=== PATIENT | female | born 1975 | race Caucasian/White ===

== ENCOUNTER → 2016-09-27 | Outpatient (CLI) | payer OTHER ==
[~2016-09-27] MED LIST: IBUP-1222 PO; MEDR5TAB2 PO
== END | disposition home or self-care (01) ==
LOC: CFH 14:04
PROVIDERS: ATTEND Family Medicine
DX: N83.292 Other ovarian cyst, left side (principal); N85.8 Other specified noninflammatory disorders of uterus; N85.4 Malposition of uterus; Z90.721 Acquired absence of ovaries, unilateral
CPT/HCPCS: 76830

== ENCOUNTER 2017-02-09 10:03 | Day surgery (SDC) | payer OTHER ==
[2017-02-07 09:17] LABS: HEMOGLOBIN 11.6 g/dL (11.7-16.4); WHITE BLOOD COUNT 6.5 x10^3/uL (3.4-10)
[~2017-02-09] VITALS: Ht 170.2 cm; Wt 93.0 kg
[~2017-02-09 10:03] MED LIST changes: +ACET-1600 PO; +Iron PO; +LATA2.5D3 EACHEYE; +NORE5TAB PO
[2017-02-09] MEDS ORDERED: LIDOCAINE/PF 1%, 30ML ONE (10:09)
[2017-02-09] MEDS ORDERED: SILVER NITRATE STICK TP ONE (10:10)
[2017-02-09] MEDS ORDERED: LIDOCAINE 1%, 2ML ONE (10:24)
[2017-02-09] MEDS ORDERED: LACTATED RINGERS 1,000 ML IV SCH (10:26)
[2017-02-09 10:27] VITALS: BP 133/93
[2017-02-09] MEDS ORDERED: LIDOCAINE 1%, 2ML SQ PRN (10:30)
[2017-02-09] MEDS ORDERED: FENTANYL PF 100 MCG/2ML ONE ×3 (11:07→13:16)
[2017-02-09] MEDS ORDERED: MIDAZOLAM 1 MG/ML, 2ML ONE (11:07)
[2017-02-09 11:27] LABS: HCG UR OBC PASS
[2017-02-09] MEDS ORDERED: KETAMINE 10 MG/ML, 20ML ONE (12:09)
[2017-02-09] MEDS ORDERED: DEXAMETHASONE 4 MG/ML, 5ML ONE (12:09)
[2017-02-09] MEDS ORDERED: PROPOFOL 10 MG/ML, 20ML ONE (12:09)
[2017-02-09] MEDS ORDERED: KETOROLAC 30 MG/1 ML ONE (12:09)
[2017-02-09] MEDS ORDERED: ONDANSETRON 2MG/ML, 2ML ONE (12:09)
[2017-02-09] MEDS ORDERED: HYDROmorphone 1 MG/ML, 1ML ONE (12:53)
[2017-02-09] MEDS ORDERED: ACETAMINOPHEN 650 MG/20.3 ML UDC ONE (12:55)
[2017-02-09] MEDS ORDERED: OXYcodone 5 MG/5 ML ORAL.SOL UDC ONE (12:56)
[2017-02-09] MEDS ORDERED: MEPERIDINE/PF 25MG/0.5ML IVPush PRN (13:00)
[2017-02-09] MEDS ORDERED: PROMETHAZINE 25 MG/ML, 1ML IV PRN (13:00)
[2017-02-09] MEDS ORDERED: hydrALAzine 20 MG/ML, 1ML IV PRN (13:00)
[2017-02-09] MEDS ORDERED: LABETALOL 5MG/ML, 20ML IV PRN (13:00)
[2017-02-09] MEDS ORDERED: ACETAMINOPHEN 325 MG TABLET PO PRN (13:00)
[2017-02-09] MEDS ORDERED: HYDROmorphone 1 MG/ML, 1ML IV PRN (13:00)
[2017-02-09] MEDS ORDERED: OXYcodone 5 MG/5 ML ORAL.SOL UDC PO PRN (13:00)
[2017-02-09] MEDS ORDERED: ONDANSETRON 2MG/ML, 2ML IVPush PRN (13:00)
[2017-02-09] MEDS: FENTANYL PF 100 MCG/2ML IV PRN ×2 (13:18→13:30)
== END 2017-02-09 15:45 ==
LOC: OUT 10:03
PROVIDERS: ATTEND Student in an Organized Health Care Education/Training Program
DX: N93.9 Abnormal uterine and vaginal bleeding, unspecified (principal); N84.0 Polyp of corpus uteri; G43.909 Migraine, unspecified, not intractable, without status migrainosus; Z30.430 Encounter for insertion of intrauterine contraceptive device; Z87.891 Personal history of nicotine dependence; Z72.89 Other problems related to lifestyle
CPT/HCPCS: 36415; 58300; 58558; 81025; 85025; 86850; 86900; 88305; J1100; J1885; J2405; J2704; J3010; J3490; J7120; J7298